=== PATIENT | female | born 1970 | race Caucasian/White ===

== ENCOUNTER 2017-10-15 06:06 | Day surgery (SDC) | payer BC, SELFPAY ==
[~2017-10-15] VITALS: Ht 167.6 cm; Wt 104.0 kg
[~2017-10-15 06:06] MED LIST: CRUTCH3 USE; GABA300 PO; HYDACE5 PO; INDO25 PO; NAPR500 PO; NAPR550 PO; Naproxen375 M1 PO; Norco 10-325 T1 EACH PO; Omeprazole20 M1 PO
== END 2017-10-15 11:38 | disposition home or self-care (01) ==
LOC: ORSCSDS 06:06
PROVIDERS: Orthopaedic Surgery
PROC: 0SBD4ZZ Excision of Left Knee Joint, Percutaneous Endoscopic Approach (ICD-10-PCS; principal; 2017-10-15 07:30)
PROC: 0MRP47Z Replacement of Left Knee Bursa and Ligament with Autologous Tissue Substitute, Percutaneous Endoscopic Approach (ICD-10-PCS; principal; 2017-10-15 07:30)
DX: S83.242A Other tear of medial meniscus, current injury, left knee, initial encounter (principal); S83.512A Sprain of anterior cruciate ligament of left knee, initial encounter; I48.0 Paroxysmal atrial fibrillation; G47.33 Obstructive sleep apnea (adult) (pediatric); E66.01 Morbid (severe) obesity due to excess calories; Z68.37 Body mass index [BMI] 37.0-37.9, adult; Z79.899 Other long term (current) drug therapy
CPT/HCPCS: C1713; J0171; J0690; J1100; J1885; J2250; J2405; J3010; J7120

== ENCOUNTER 2021-07-19 10:26 | Day surgery (SDC) | payer OTHER ==
[~2021-07-19] VITALS: Ht 167.6 cm; Wt 121.7 kg
[~2021-07-19 10:26] MED LIST changes: +ASPI81CH PO; +AZELASTINE137 MCG/06 NS; +CYCL10 PO; +Diclofenac Pota50 MG PO; +HYDMOR2 PO; +TIZA4 PO; +VENL75ER PO; +VOLTAREN ARTHRI20 GM TP
[2021-07-19] MEDS ORDERED: METO50 (11:17)
--- NOTE | 2021-07-19 12:13 | NUR ---
07/19/21 1213 ALEXANDRA FERNANDEZ PATIENT'S SURGEY WAS CANCELLED BY THE SURGEON DUE TO HAVING LEFT POSTERIOR HAND WOUND. PATIENT DISCHARGED AT 1147.
== END 2021-07-19 11:47 | disposition home or self-care (01) ==
LOC: ORSCSDS 10:26
DX: M75.112 Incomplete rotator cuff tear or rupture of left shoulder, not specified as traumatic (principal); M75.22 Bicipital tendinitis, left shoulder; M75.42 Impingement syndrome of left shoulder; Z53.9 Procedure and treatment not carried out, unspecified reason
CPT/HCPCS: J0171; J0690; J7120

== ENCOUNTER 2021-08-23 12:36 | Day surgery (SDC) | payer OTHER ==
[~2021-08-23] VITALS: Ht 167.6 cm; Wt 121.7 kg
[~2021-08-23 12:36] MED LIST changes: +METO50
--- NOTE | 2021-08-23 13:40 | NUR ---
08/23/21 1340 Maikel Valle CALL LIGHT WITHIN REACH. TWO IV ATTEMPTS. FIRST ON IN RIGHT HAND INFILTRATED. SECOND IV ATTEMPTS IN RIGHT WRIST AND IS SUCCESSFUL. PT TOLERATED IV ATTMEPTS WELL.
--- NOTE | 2021-08-23 14:44 | NUR ---
08/23/21 1444 Qasim Montez 1 MG EPI ADDED TO EACH OF THE FIRST 3 BAGS OF LR PER ORDER FOR IRRIGATION.
== END 2021-08-23 16:30 | disposition home or self-care (01) ==
LOC: ORSCSDS 12:36
PROVIDERS: Orthopaedic Surgery
PROC: 0LU24KZ Supplement Left Shoulder Tendon with Nonautologous Tissue Substitute, Percutaneous Endoscopic Approach (ICD-10-PCS; principal; 2021-08-23 14:15)
PROC: 0LM24ZZ Reattachment of Left Shoulder Tendon, Percutaneous Endoscopic Approach (ICD-10-PCS; principal; 2021-08-23 14:15)
PROC: 0RNK4ZZ Release Left Shoulder Joint, Percutaneous Endoscopic Approach (ICD-10-PCS; principal; 2021-08-23 14:15)
DX: M75.122 Complete rotator cuff tear or rupture of left shoulder, not specified as traumatic (principal); M75.22 Bicipital tendinitis, left shoulder; M75.42 Impingement syndrome of left shoulder; I10 Essential (primary) hypertension; I48.0 Paroxysmal atrial fibrillation; G47.33 Obstructive sleep apnea (adult) (pediatric); J45.909 Unspecified asthma, uncomplicated; E66.01 Morbid (severe) obesity due to excess calories; Z68.41 Body mass index [BMI] 40.0-44.9, adult; Z79.899 Other long term (current) drug therapy; Z79.82 Long term (current) use of aspirin
CPT/HCPCS: C1713; J0171; J0690; J1100; J1885; J2250; J2405; J2704; J3010; J7120

== ENCOUNTER → 2022-11-17 | Outpatient (CLI) | payer OTHER ==
[2022-11-21 08:35] LABS: Candida species (DNA Probe) Negative (NEGATIVE); G. vaginalis (DNA Probe) Negative (NEGATIVE); T. vaginalis (DNA Probe) Negative (NEGATIVE)
== END | disposition home or self-care (01) ==
LOC: LAB SHORT 15:26 → LAB 15:26
PROVIDERS: Family Medicine
DX: N77.1 Vaginitis, vulvitis and vulvovaginitis in diseases classified elsewhere (principal)
CPT/HCPCS: 87480; 87510; 87660

== ENCOUNTER → 2024-08-04 | Outpatient (CLI) | payer OTHER | END | disposition home or self-care (01) | LOC: LAB 10:58 → LAB SHORT 10:58 | DX: N39.0 Urinary tract infection, site not specified (principal) | CPT/HCPCS: 87086 ==

== ENCOUNTER → 2024-09-16 | Outpatient (CLI) | payer OTHER ==
[2024-09-19 10:15] LABS: HPV HIGH RISK BY TMA Not Detected; HPV SOURCE Cervical/Vag
== END ==
LOC: LAB SHORT 10:30 → LAB 10:30
PROVIDERS: Obstetrics & Gynecology
DX: Z01.419 Encounter for gynecological examination (general) (routine) without abnormal findings (principal)
CPT/HCPCS: 87624; G0123

== ENCOUNTER → 2024-11-14 | Outpatient (CLI) | payer OTHER ==
[2024-11-14 12:50] LABS: Source, Urine Clean Catch
[2024-11-14 14:18] LABS: Appearance, Urine Hazy (Clear); Bilirubin, Urine Neg (Neg); Blood, Urine Neg (Neg); Color, Urine Yellow (P-Yellow); Glucose Qualitative, Urine Neg (Neg); Ketones, Urine Neg (Neg); Leukocyte Esterase, Urine 3+ (Neg); Nitrite, Urine Neg (Neg); Protein, Urine 1+ (Neg); Urobilinogen, Urine NORM (Normal)
[2024-11-14 14:29] LABS: Bacteria Many /hpf; Red Blood Cells, Urine 0-2 /hpf (0-2); Squamous Epithelial Cells Few /hpf (Few)
== END ==
LOC: LAB 12:46 → LAB SHORT 12:46
PROVIDERS: Obstetrics & Gynecology
DX: Z01.818 Encounter for other preprocedural examination (principal)
CPT/HCPCS: 81001; 87086

== ENCOUNTER 2024-11-21 08:57 | Day surgery (SDC) | payer OTHER ==
[~2024-11-21] VITALS: Ht 167.6 cm; Wt 99.7 kg
[2024-11-21] MEDS ORDERED: Lactated Ringer's 1,000 ML IV ONE (09:15)
[2024-11-21] MEDS ORDERED: ELIQUIS5 M2 PO (09:17)
[2024-11-21] MEDS ORDERED: DILT60ER PO (09:24)
[2024-11-21] MEDS ORDERED: PROGESTERONE200 M1 PO (09:25)
[2024-11-21] MEDS ORDERED: TRAZ50 PO (09:26)
[2024-11-21] MEDS ORDERED: Prinivil10 MG PO (09:26)
[2024-11-21] MEDS ORDERED: PRAVASTATIN SOD10 MG PO (09:28)
[2024-11-21] MEDS ORDERED: ALBU90OI INH (09:29)
[2024-11-21] MEDS ORDERED: Midazolam HCl 1MG / ML 2ML Vial ONE (09:43)
[2024-11-21] MEDS ORDERED: FentaNYL Citrate 50 MCG/ML 2 ML Injection ONE (09:43)
[2024-11-21] MEDS ORDERED: propofoL 20 ML IV ONE (09:44)
[2024-11-21] MEDS ORDERED: Dexamethasone Sod Phos 10 MG/ML 1ML VIAL ONE (09:44)
[2024-11-21] MEDS ORDERED: Ondansetron HCl 2 MG / ML 2ML Vial ONE (09:44)
--- NOTE | 2024-11-21 10:28 | NUR ---
11/21/24 1028 Maria Antonia Graves 150CC FLUID NACL FLUID DEFICIT FROM HYSTEROSCOPY. ZEV RAMIREZ IN ROOM.
[2024-11-21 11:06] VITALS: BP 135/80
== END 2024-11-21 11:38 | disposition home or self-care (01) ==
LOC: ORSCSDS 08:57
PROVIDERS: Obstetrics & Gynecology
PROC: 0UDB8ZX Extraction of Endometrium, Via Natural or Artificial Opening Endoscopic, Diagnostic (ICD-10-PCS; principal; 2024-11-21 10:30)
DX: N95.0 Postmenopausal bleeding (principal); N84.1 Polyp of cervix uteri; I10 Essential (primary) hypertension; I25.10 Atherosclerotic heart disease of native coronary artery without angina pectoris; J45.909 Unspecified asthma, uncomplicated; I48.0 Paroxysmal atrial fibrillation; F41.8 Other specified anxiety disorders; Z79.899 Other long term (current) drug therapy; Z79.01 Long term (current) use of anticoagulants
CPT/HCPCS: 88305; J1100; J2250; J2405; J2704; J3010

== ENCOUNTER → 2025-06-05 | Outpatient (CLI) | payer OTHER ==
[~2025-06-05] MED LIST changes: +ALBU90OI INH; +DILT60ER PO; +ELIQUIS5 M2 PO; +PRAVASTATIN SOD10 MG PO; +PROGESTERONE200 M1 PO; +Prinivil10 MG PO; +TRAZ50 PO
== END | disposition home or self-care (01) ==
LOC: LAB SHORT 08:04 → LAB 08:04
DX: R89.7 Abnormal histological findings in specimens from other organs, systems and tissues (principal); Z77.111 Contact with and (suspected) exposure to water pollution
CPT/HCPCS: 88305; 88312